=== PATIENT | male | born 1945 | race Caucasian/White ===

== ENCOUNTER → 2021-01-20 | Outpatient (CLI) | payer OTHER ==
[~2021-01-20] MED LIST: ACETAMINOPHEN-1 EAC1 PO; AMLODIPINE BESYL5 MG PO; ASPIR 8181 MG PO; ASPIRIN325 MG PO; BENADRYL ALLERG25 MG PO; CARDIZEM CD240 MG PO; CELEBREX 200MG200 MG PO; DIGOX250 MCG PO; ELIQUIS5 MG PO; ENTRESTO 24 MG1 EACH PO; FENOFIBRATE160 MG PO; FLAX SEED OIL1000 MG PO; GLUCOPHAGE XR500 M1 PO; HYDROCHLOROTHIA25 MG PO; IMDUR ER TAB 3030 MG PO; LEVAQUIN500 MG PO; LEVAQUIN750 MG PO; LOPRESSOR 25 MG25 MG PO; LOPRESSOR 50 MG50 MG PO; METFORMIN HCL1000 MG PO; MONTELUKAST SOD10 MG PO; NORVASC 5 MG TAB5 MG PO; PRAVACHOL20 MG PO; PRAVASTATIN SOD10 MG PO; QUINAPRIL HCL40 MG PO; SINGULAIR10 MG PO; SPIRONOLACTONE25 MG PO; TRAZODONE HCL50 MG PO; TYLENOL 500 MG500 MG PO; TYLENOL WITH C1 EACH PO
== END ==
LOC: KOH-I 13:27
DX: R41.0 Disorientation, unspecified (principal)
CPT/HCPCS: 70450

== ENCOUNTER → 2021-02-08 | Outpatient (CLI) | payer OTHER | LOC: NM 01-09 10:00 → ECHO 01-10 09:00 → NM 01-10 10:00 | DX: I20.9 Angina pectoris, unspecified (principal); I08.0 Rheumatic disorders of both mitral and aortic valves | CPT/HCPCS: ECHO; 78452; 93306; A9502 ==

== ENCOUNTER → 2021-02-09 | Outpatient (CLI) | payer OTHER | LOC: NM 07:55 | DX: I20.9 Angina pectoris, unspecified (principal) | CPT/HCPCS: 93017; A9502; J2785 ==